=== PATIENT | male | born 1950 | race Caucasian/White ===

== ENCOUNTER 2022-10-14 06:35 | Inpatient (IN) | payer MEDICARE ==
[~2022-10-14] VITALS: Ht 180.3 cm; Wt 99.8 kg
[2022-10-14] VITALS (7 sets, daily range): BP systolic 115–129; BP diastolic 60–69; PULSE 66–81; RESP 16–21; TEMP 97.5–98.6; O2SAT 100
[2022-10-14] MEDS ORDERED: SODIUM CHLORIDE 0.9% 1000ML 1,000 ML IV ONE (07:00)
[2022-10-14] MEDS ORDERED: CEFTRIAXONE 1 GM VIAL IV SCH (07:00)
[2022-10-14 07:06] LABS: BASOPHILS % 0.2 % (0.0-1.0); EOSINOPHILS # (AUTO) 0.1 (0.0-0.4); EOSINOPHILS % 0.2 % (0.0-6.0); HEMATOCRIT 35.1 % (38.2-49.6); HEMOGLOBIN 12.3 g/dL (14.0-18.0); LYMPHOCYTES # (AUTO) 1.2 (1.0-3.2); LYMPHOCYTES % 5.6 % (18.0-39.1); MEAN CORPUSCULAR HEMOGLOBIN 29.7 pg (28-32); MEAN CORPUSCULAR VOLUME 84.8 fL (81-99); MONOCYTES # (AUTO) 1.6 (0.2-0.8); MONOCYTES % 7.4 % (4.4-11.3); NEUTROPHILS # (AUTO) 17.6 (2.1-6.9); NEUTROPHILS % 84.7 % (38.7-80.0); PLATELET COUNT 307 x10e3/uL (140-360); RED BLOOD COUNT 4.14 x10e6/uL (4.3-5.7); RED CELL DISTRIBUTION WIDTH 14.3 % (11.7-14.4)
[2022-10-14 07:28] LABS: ALBUMIN 2.4 g/dL (3.5-5.0); ALBUMIN/GLOBULIN RATIO 0.5 (0.8-2.0); ANION GAP 17.9 mmol/L (8-16); CALCIUM 8.4 mg/dL (8.4-10.2); CREATININE, SERUM 3.88 mg/dL (0.72-1.25)
[2022-10-14 07:32] LABS: POTASSIUM 2.9 mmol/L (3.5-5.1)
[2022-10-14 07:38] LABS: INR 1.17; PROTHROMBIN TIME 15.4 seconds (11.9-14.5)
[2022-10-14 07:39] LABS: PARTIAL THROMBOPLASTIN TIME 30.9 seconds (23.8-35.5)
[2022-10-14] MEDS ORDERED: POTASSIUM CHLORIDE 20MEQ/100ML 200 ML IV ONE (07:45)
[2022-10-14 08:00] LABS: BAND NEUTROPHILS % (MANUAL) 1 %; LYMPHOCYTES % (MANUAL) 5 % (19-48); MONOCYTES % (MANUAL) 5 % (3.4-9.0); NEUTROPHILS % (MANUAL) 89 % (40-74)
[2022-10-14 08:01] LABS: PLATELET ESTIMATE ADEQUATE; PLATELET MORPHOLOGY COMMENT NORMAL; RBC MORPHOLOGY COMMENT NORMAL
[2022-10-14 08:23] LABS: CLARITY,URINE CLOUDY (CLEAR); COLOR,URINE YELLOW (YELLOW); KETONES,URINE NEGATIVE (NEGATIVE); LEUKOCYTE ESTERASE ,URINE LARGE (NEGATIVE); NITRITE,URINE NEGATIVE (NEGATIVE); PROTEIN,URINE DIPSTICK >=300 (NEGATIVE)
[2022-10-14] MEDS ORDERED: ONDANSETRON HCL INJ 2MG/ML 2ML 2 MG/ML VIAL IV PRN (08:30)
[2022-10-14 08:31] LABS: WBC,URINE (MAN) >50 /HPF (0-5)
[2022-10-14 08:43] LABS: BACTERIA,URINE MANY /HPF
[2022-10-14 08:44] LABS: EPITHELIAL CELLS,URINE RARE /LPF
[2022-10-14] MEDS: SODIUM CHLORIDE 0.9% 1000ML 1,000 ML IV SCH ×3 (08:49→22:03)
[2022-10-14] MEDS ORDERED: HEPARIN 25,000 UNIT/D5W 250ML 1,500 UNIT in DEXTROSE 5% 250ML 250 ML IV SCH (10:45)
[2022-10-14] MEDS ORDERED: HEPARIN SOD (PORCINE) 5,000 UNIT/ML VIAL IV ONE (10:45)
[2022-10-14] MEDS ORDERED: ACETAMINOPHEN 325 MG TAB PO PRN (14:45)
[2022-10-14] MEDS ORDERED: POTASSIUM CHLORIDE 10MEQ EA PO ONE (15:10)
[2022-10-14] MEDS: TERAZOSIN HCL 5 MG CAP PO SCH ×2 (21:00→21:10)
[2022-10-14] MEDS: HEPARIN SOD (PORCINE) 5,000 UNIT/ML VIAL SC SCH (21:18)
[2022-10-15] VITALS (7 sets, daily range): BP systolic 106–129; BP diastolic 63–67; PULSE 63–87; RESP 16–19; TEMP 97.3–98; O2SAT 97–100
[2022-10-15 05:56] LABS: BASOPHILS # (AUTO) 0.1 (0.0-0.1); BASOPHILS % 0.4 % (0.0-1.0); EOSINOPHILS # (AUTO) 0.1 (0.0-0.4); EOSINOPHILS % 0.5 % (0.0-6.0); HEMATOCRIT 32.5 % (38.2-49.6); HEMOGLOBIN 11.1 g/dL (14.0-18.0); LYMPHOCYTES # (AUTO) 1.4 (1.0-3.2); LYMPHOCYTES % 7.2 % (18.0-39.1); MEAN CORPUSCULAR HEMOGLOBIN 29.4 pg (28-32); MEAN CORPUSCULAR HGB CONC 34.2 g/dL (31-35); MEAN CORPUSCULAR VOLUME 86.2 fL (81-99); MONOCYTES # (AUTO) 1.4 (0.2-0.8); MONOCYTES % 7.5 % (4.4-11.3); NEUTROPHILS # (AUTO) 15.4 (2.1-6.9); NEUTROPHILS % 81.2 % (38.7-80.0); PLATELET COUNT 349 x10e3/uL (140-360); RED BLOOD COUNT 3.77 x10e6/uL (4.3-5.7); RED CELL DISTRIBUTION WIDTH 14.8 % (11.7-14.4)
[2022-10-15 06:33] LABS: ALBUMIN/GLOBULIN RATIO 0.5 (0.8-2.0); ANION GAP 15.4 mmol/L (8-16); CALCIUM 7.6 mg/dL (8.4-10.2); CREATININE, SERUM 2.93 mg/dL (0.72-1.25); POTASSIUM 3.4 mmol/L (3.5-5.1)
[2022-10-15] MEDS: SODIUM CHLORIDE 0.9% 1000ML 1,000 ML IV SCH (09:26)
[2022-10-15] MEDS: HEPARIN SOD (PORCINE) 5,000 UNIT/ML VIAL SC SCH ×2 (09:30→21:10)
[2022-10-15] MEDS ORDERED: MAGNESIUM SULF 1GRAM/DEXTROSE 100 ML IV ONE (11:00)
[2022-10-15] MEDS: SODIUM BICARBONATE 8.4% SYRING 150 ML in DEXTROSE 5% 1,000 ML IV SCH ×2 (11:55→22:30)
[2022-10-15] MEDS ORDERED: BISACODYL 5 MG TAB EC PO PRN (12:15)
[2022-10-15] MEDS: POTASSIUM CHLORIDE 20MEQ/100ML 100 ML IV SCH ×2 (13:54→14:00)
[2022-10-15] MEDS: DOCUSATE SODIUM 100 MG CAP PO SCH (17:45)
[2022-10-15] MEDS ORDERED: POTASSIUM CHLORIDE 20MEQ/100ML 100 ML IV ONE (17:45)
[2022-10-15] MEDS: TERAZOSIN HCL 5 MG CAP PO SCH (20:52)
[2022-10-16] VITALS (7 sets, daily range): BP systolic 123–153; BP diastolic 62–78; PULSE 53–71; RESP 18; TEMP 97.5–97.9; O2SAT 98–100
[2022-10-16 05:56] LABS: BASOPHILS # (AUTO) 0.1 (0.0-0.1); BASOPHILS % 0.4 % (0.0-1.0); EOSINOPHILS # (AUTO) 0.1 (0.0-0.4); EOSINOPHILS % 0.7 % (0.0-6.0); HEMOGLOBIN 9.9 g/dL (14.0-18.0); LYMPHOCYTES # (AUTO) 1.5 (1.0-3.2); LYMPHOCYTES % 10.5 % (18.0-39.1); MEAN CORPUSCULAR HEMOGLOBIN 29.7 pg (28-32); MEAN CORPUSCULAR HGB CONC 35.4 g/dL (31-35); MEAN CORPUSCULAR VOLUME 84.1 fL (81-99); MONOCYTES % 6.9 % (4.4-11.3); NEUTROPHILS # (AUTO) 10.8 (2.1-6.9); NEUTROPHILS % 77.5 % (38.7-80.0); PLATELET COUNT 337 x10e3/uL (140-360); RED BLOOD COUNT 3.33 x10e6/uL (4.3-5.7); RED CELL DISTRIBUTION WIDTH 14.6 % (11.7-14.4)
[2022-10-16 06:18] LABS: ALBUMIN 1.8 g/dL (3.5-5.0); ALBUMIN/GLOBULIN RATIO 0.5 (0.8-2.0); ANION GAP 12.6 mmol/L (8-16); CALCIUM 7.3 mg/dL (8.4-10.2); CREATININE, SERUM 2.11 mg/dL (0.72-1.25); POTASSIUM 3.6 mmol/L (3.5-5.1)
[2022-10-16] MEDS: DOCUSATE SODIUM 100 MG CAP PO SCH ×2 (08:54→16:44)
[2022-10-16] MEDS: HEPARIN SOD (PORCINE) 5,000 UNIT/ML VIAL SC SCH ×2 (08:58→21:58)
[2022-10-16] MEDS: SODIUM BICARBONATE 8.4% SYRING 150 ML in DEXTROSE 5% 1,000 ML IV SCH (14:56)
[2022-10-16] MEDS ORDERED: TERAZOSIN HCL5 MG PO (15:22)
[2022-10-16] MEDS: TERAZOSIN HCL 5 MG CAP PO SCH (16:40)
[2022-10-16] MEDS ORDERED: ATORVASTATIN CA10 MG PO (18:23)
[2022-10-16] MEDS ORDERED: HYDROCODON-ACE1 EAC9 PO (18:23)
[2022-10-16] MEDS ORDERED: IBUPROFEN400 MG PO (18:23)
[2022-10-17] VITALS (7 sets, daily range): BP systolic 115–145; BP diastolic 57–72; PULSE 60–71; RESP 18–22; TEMP 98.1–98.3; O2SAT 98–99
[2022-10-17] MEDS: SODIUM BICARBONATE 8.4% SYRING 150 ML in DEXTROSE 5% 1,000 ML IV SCH ×3 (00:28→23:00)
[2022-10-17 06:47] LABS: BASOPHILS # (AUTO) 0.1 (0.0-0.1); BASOPHILS % 0.4 % (0.0-1.0); EOSINOPHILS # (AUTO) 0.1 (0.0-0.4); EOSINOPHILS % 1.1 % (0.0-6.0); HEMATOCRIT 28.9 % (38.2-49.6); LYMPHOCYTES # (AUTO) 1.5 (1.0-3.2); LYMPHOCYTES % 11.8 % (18.0-39.1); MEAN CORPUSCULAR HEMOGLOBIN 29.4 pg (28-32); MEAN CORPUSCULAR HGB CONC 34.6 g/dL (31-35); NEUTROPHILS # (AUTO) 9.7 (2.1-6.9); NEUTROPHILS % 75.1 % (38.7-80.0); PLATELET COUNT 371 x10e3/uL (140-360)
[2022-10-17 07:17] LABS: ANION GAP 16.4 mmol/L (8-16); CALCIUM 7.4 mg/dL (8.4-10.2); CREATININE, SERUM 1.63 mg/dL (0.72-1.25); POTASSIUM 3.4 mmol/L (3.5-5.1)
[2022-10-17] MEDS: HEPARIN SOD (PORCINE) 5,000 UNIT/ML VIAL SC SCH ×2 (08:00→21:48)
[2022-10-17] MEDS: DOCUSATE SODIUM 100 MG CAP PO SCH ×2 (08:00→16:23)
[2022-10-17] MEDS: TERAZOSIN HCL 5 MG CAP PO SCH ×2 (08:02→16:23)
[2022-10-18 00:28] VITALS: BP 155/83; PULSE 57; RESP 18; TEMP 97.1; O2SAT 97
[2022-10-18 04:00] VITALS: BP 131/57; PULSE 55; RESP 18; TEMP 98.6; O2SAT 98
[2022-10-18 05:58] LABS: BASOPHILS # (AUTO) 0.1 (0.0-0.1); BASOPHILS % 0.5 % (0.0-1.0); EOSINOPHILS # (AUTO) 0.2 (0.0-0.4); EOSINOPHILS % 1.8 % (0.0-6.0); HEMOGLOBIN 9.5 g/dL (14.0-18.0); LYMPHOCYTES # (AUTO) 1.6 (1.0-3.2); LYMPHOCYTES % 15.3 % (18.0-39.1); MEAN CORPUSCULAR HEMOGLOBIN 29.1 pg (28-32); MEAN CORPUSCULAR HGB CONC 33.9 g/dL (31-35); MEAN CORPUSCULAR VOLUME 85.9 fL (81-99); MONOCYTES # (AUTO) 0.9 (0.2-0.8); NEUTROPHILS # (AUTO) 7.8 (2.1-6.9); NEUTROPHILS % 72.3 % (38.7-80.0); PLATELET COUNT 344 x10e3/uL (140-360); RED BLOOD COUNT 3.26 x10e6/uL (4.3-5.7)
[2022-10-18 06:20] LABS: ANION GAP 11.2 mmol/L (8-16); CALCIUM 7.2 mg/dL (8.4-10.2); CREATININE, SERUM 1.45 mg/dL (0.72-1.25); POTASSIUM 3.2 mmol/L (3.5-5.1)
[2022-10-18 09:00] VITALS: BP 138/53; PULSE 62; RESP 19; TEMP 97.9; O2SAT 97
[2022-10-18 09:08] VITALS: BP 138/53; PULSE 62; RESP 19; TEMP 97.9; O2SAT 97
[2022-10-18] MEDS: TERAZOSIN HCL 5 MG CAP PO SCH (10:05)
[2022-10-18] MEDS: DOCUSATE SODIUM 100 MG CAP PO SCH (10:05)
[2022-10-18] MEDS: HEPARIN SOD (PORCINE) 5,000 UNIT/ML VIAL SC SCH (10:14)
[2022-10-18] MEDS ORDERED: POTASSIUM CHLORIDE 20 MEQ TAB CR PO STA (11:00)
[2022-10-18] MEDS ORDERED: ONDANSETRON HCL 4 MG ORAL DISINTEGRATING TAB PO PRN (11:15)
[2022-10-18 11:52] VITALS: BP 152/70; PULSE 60; RESP 19; TEMP 97.9; O2SAT 99
[2022-10-18] MEDS ORDERED: LEVOFLOXACIN500 MG PO (12:28)
== END 2022-10-18 14:49 | disposition home or self-care (01) | DRG 690 ==
LOC: ER 06:45 → ERHOLD 08:23 → MED/SURG2 11:44 → OBSVTOIN 10-15 09:14
PROVIDERS: ADMIT Internal Medicine; ATTEND Internal Medicine
DX: N39.0 Urinary tract infection, site not specified (principal); N17.9 Acute kidney failure, unspecified; E87.20 Acidosis, unspecified; I12.9 Hypertensive chronic kidney disease with stage 1 through stage 4 chronic kidney disease, or unspecified chronic kidney disease; B96.20 Unspecified Escherichia coli [E. coli] as the cause of diseases classified elsewhere; N18.9 Chronic kidney disease, unspecified; E78.00 Pure hypercholesterolemia, unspecified; K59.00 Constipation, unspecified; C61 Malignant neoplasm of prostate; D63.1 Anemia in chronic kidney disease; K40.90 Unilateral inguinal hernia, without obstruction or gangrene, not specified as recurrent; R91.1 Solitary pulmonary nodule; E87.6 Hypokalemia; N25.89 Other disorders resulting from impaired renal tubular function; Z20.822 Contact with and (suspected) exposure to COVID-19
CPT/HCPCS: 36415; 71046; 74176; 76770; 80048; 80053; 81001; 83605; 85025; 85610; 85730; 87040; 87086; 87186; 93005; 99284; G0378; J0696; J1644; J2543; J3475; J3480; J7030; J7070